=== PATIENT | male | born 1980 | race American Indian/Alaskan Native ===

== ENCOUNTER 2019-05-10 22:42 | Emergency (ER) | payer SELFPAY ==
--- NOTE | 2019-05-10 23:50 | XRay Report ---
CHEST 2 VIEWS INDICATION / CLINICAL INFORMATION: Cough for 2 months. Weakness and loss of appetite for one week. COMPARISON: None available. FINDINGS: SUPPORT DEVICES: None. HEART / MEDIASTINUM: The heart size and pulmonary vasculature are normal. LUNGS / PLEURA: No significant pulmonary or pleural abnormality. No pneumothorax. ADDITIONAL FINDINGS: There is moderate elevation of the right hemidiaphragm anteriorly, likely relate d to eventration. IMPRESSION: Moderately elevated right hemidiaphragm without acute pulmonary disease. Signer Name: Mat Wheeler MD Signed: 05/10/2019 11:46 PM Workstation Name: [id number]
[2019-05-10 23:51] LABS: Hematocrit 44.2 % (35.5-45.6); Hemoglobin 15.5 gm/dl (11.8-15.2); Mean Corpuscular HGB Conc 35 % (32-34); Mean Corpuscular Volume 85 fl (84-94); Platelet Count 225 K/mm3 (140-440); Red Cell Distribution Width 12.6 % (13.2-15.2)
[2019-05-11 00:15] LABS: Albumin 3.9 g/dL (3.9-5)
--- NOTE | 2019-05-11 01:04 | Emergency Department Report ---
ED General Adult HPI - General Chief complaint: Weakness Stated complaint: COUGH, WEAKNESS, LOSS OF APPETITE Time Seen by Provider: 05/11/19 00:56 Source: patient Mode of arrival: Ambulatory Limitations: No Limitations - History of Present Illness Initial comments: 38-year-old male with a history of stage IV chronic kidney disease and hypertension presents with complaint of weakness and loss of appetite for the past week. Patient's had a cough for the past 2 months. Patient states that his cough has been productive of a thick clear mucus. Patient states it is mucus sometimes chokes him. Patient denies any chest pain at current time. 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 Patient states his last bowel movement was this evening he denies any hematochezia. Patient states that intermittently he has nausea as well as vomiting with this afternoon however he denies any abdominal pain. Patient denies fever. - Related Data Previous Rx's Medication Instructions Recorded Last Taken Type Ondansetron [Zofran Odt] 4 mg PO Q8HR #20 tab.rapdis 05/11/19 Unknown Rx glipiZIDE [Glucotrol] 5 mg PO QDAY #30 tablet 05/11/19 Unknown Rx Allergies Allergy/AdvReac Type Severity Reaction Status Date / Time azithromycin Allergy Swelling Verified 05/10/19 22:52 ED Review of Systems ROS: Stated complaint: COUGH, WEAKNESS, LOSS OF APPETITE Other details as noted in HPI Constitutional: malaise, other (loss of appetite) Eyes: denies: eye pain, eye discharge, vision change ENT: denies: ear pain, throat pain Respiratory: cough Cardiovascular: denies: chest pain, palpitations Endocrine: no symptoms reported Gastrointestinal: denies: abdominal pain, nausea, diarrhea Genitourinary: denies: urgency, dysuria Musculoskeletal: other (weakness) Skin: denies: rash, lesions Neurological: denies: headache, weakness, paresthesias Psychiatric: denies: anxiety, depression Hematological/Lymphatic: denies: easy bleeding, easy bruising ED Past Medical Hx - Past Medical History Previous Medical History?: Yes Hx Hypertension: Yes Hx Renal Disease: Yes (Stage IV chronic kidney disease) Hx Seizures: Yes (last seizure 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) Hx Psychiatric Treatment: Yes (depression) Hx Asthma: Yes Additional medical history: Vitamin D defiency - Surgical History Past Surgical History?: Yes Additional Surgical History: Two biopsies done on kidneys - Social History Smoking Status: Never Smoker - Medications Home Medications: Home Medications Medication Instructions Recorded Confirmed Last Taken Type Ondansetron [Zofran Odt] 4 mg PO Q8HR #20 tab.rapdis 05/11/19 Unknown Rx glipiZIDE [Glucotrol] 5 mg PO QDAY #30 tablet 05/11/19 Unknown Rx ED Physical Exam - General Limitations: No Limitations General appearance: alert, other (mildly uncomfortable; dehydrated) - Head Head exam: Present: atraumatic, normocephalic - Eye Eye exam: Present: normal appearance - ENT ENT exam: Present: mucous membranes dry - Neck Neck exam: Present: normal inspection - Respiratory Respiratory exam: Present: normal lung sounds bilaterally. Absent: respiratory distress - Cardiovascular Cardiovascular Exam: Present: normal rhythm, tachycardia. Absent: systolic murmur, diastolic murmur, rubs, gallop - GI/Abdominal GI/Abdominal exam: Present: soft, normal bowel sounds. Absent: distended, tenderness - Rectal Rectal exam: Present: deferred - Extremities Exam Extremities exam: Present: normal inspection - Back Exam Back exam: Present: normal inspection - Neurological Exam Neurological exam: Present: alert, oriented X3 - Psychiatric Psychiatric exam: Present: normal affect, normal mood - Skin Skin exam: Present: warm, dry, intact, normal color. Absent: rash ED Course Vital Signs 05/10/19 05/10/19 05/11/19 22:52 23:06 02:31 Temperature 98.6 F 98.6 F Pulse Rate 123 H 123 H 96 H Respiratory 18 18 13 Rate Blood Pressure 155/113 155/113 131/101 Blood Pressure [Left] O2 Sat by Pulse 97 97 99 Oximetry 05/11/19 04:35 Temperature 98.2 F Pulse Rate 89 Respiratory 19 Rate Blood Pressure Blood Pressure 131/93 [Left] O2 Sat by Pulse 99 Oximetry ED Medical Decision Making - Lab Data Result diagrams: 05/10/19 23:27 05/10/19 23:27 - EKG Data EKG shows normal: sinus rhythm Rate: tachycardia - Medical Decision Making Patient has no prior history of diabetes and had elevated blood glucose. Patient received normal saline while here numerous her regarding this. Patient has had no elevated potassium either while in the emergency department. Patient is not acidotic. Patient's blood glucose is down trended as well. Patient has no prior history of diabetes only be giving glipizide therapy to take on an outpatient basis. Patient to follow up with Dr. Ware. - Differential Diagnosis Arrythmia; STEMI; NSTEMI; Anemia; Dehydration; Critical care attestation.: If time is entered above; I have spent that time in minutes in the direct care of this critically ill patient, excluding procedure time. ED Disposition Clinical Impression: Diabetes mellitus with hyperglycemia, CKD (chronic kidney disease) stage 4, GFR 15-29 ml/min Disposition: TO HOME OR SELFCARE Is pt being admited?: No Condition: Stable Instructions: Chronic Kidney Disease (ED), Diabetes Mellitus Type 2 in Adults (ED) Prescriptions: glipiZIDE [Glucotrol] 5 mg PO QDAY #30 tablet Ondansetron [Zofran Odt] 4 mg PO Q8HR #20 tab.rapdis Referrals: QUIN BYRNE MD [Primary Care Provider] - 3-5 Days Time of Disposition: 06:38 Print Language: YEMENI
[2019-05-11] MEDS ORDERED: NACL 0.9% 1000 ML 1,000 ML IV ONE (01:33)
[2019-05-11 04:36] VITALS: BP 131/93
== END 2019-05-11 04:35 | disposition home or self-care (01) ==
LOC: ED 22:42
DX: E11.65 Type 2 diabetes mellitus with hyperglycemia (principal); I12.9 Hypertensive chronic kidney disease with stage 1 through stage 4 chronic kidney disease, or unspecified chronic kidney disease; E11.22 Type 2 diabetes mellitus with diabetic chronic kidney disease; N18.4 Chronic kidney disease, stage 4 (severe); F32.9 Major depressive disorder, single episode, unspecified; J45.909 Unspecified asthma, uncomplicated; Z79.899 Other long term (current) drug therapy; Z88.1 Allergy status to other antibiotic agents
CPT/HCPCS: 36415; 71046; 80053; 82550; 82803; 82962; 85027; 93005; 93010; 96360; 99284; J7030